=== PATIENT | male | born 1985 | race Caucasian/White ===

== ENCOUNTER 2019-08-11 07:06 | Emergency (ER) | payer SELFPAY ==
[~2019-08-11] VITALS: Ht 180.3 cm; Wt 66.0 kg
[2019-08-11 07:18] VITALS: BP 121/79
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
--- NOTE | 2019-08-11 07:43 | NUR ---
PATIENT APPEARS DISHOVELED, DOES NOT MAKE EYE CONTACT FREQUENTLY, ASKING FOR FOOD AND COFFEE, EXPLAINED TO PT THAT WE HAVE TO WAIT FOR RESULTS OF IMAGING.
[2019-08-11] MEDS ORDERED: HYDROcodone/APAP 5/325 TABLET ONE (07:46)
--- NOTE | 2019-08-11 07:55 | NUR ---
PATIENT REFUSES TO HAVE VISUAL ACUITY TEST DONE BY EMT. PATIENT PACING IN ROOM.
[2019-08-11] MEDS ORDERED: HYDROcodone/APAP 5/325 TABLET PO ONE (08:00)
--- NOTE | 2019-08-11 08:04 | NUR ---
PATIENT MEDICATED PER EMAR, RESTING ON GURNEY. CALL LIGHT IN REACH.
--- NOTE | 2019-08-11 08:21 | NUR ---
PT REFUSING X RAY AND VS. NOTIFIED
--- NOTE | 2019-08-11 08:45 | NUR ---
Patient/Caregiver given discharge instructions and they have confirmed that they understand the instructions. Patient ambulatory with steady gait.
== END 2019-08-11 08:50 ==
LOC: ED 08:42
DX: S06.0X0A Concussion without loss of consciousness, initial encounter (principal); S20.211A Contusion of right front wall of thorax, initial encounter; Y04.8XXA Assault by other bodily force, initial encounter; Y93.89 Activity, other specified; Y92.410 Unspecified street and highway as the place of occurrence of the external cause; Y99.8 Other external cause status
CPT/HCPCS: 70450; 72125; 99284